=== PATIENT | female | born 1960 | race Caucasian/White ===

== ENCOUNTER 2016-05-11 12:29 | Inpatient (IN) | payer BC ==
[2016-05-11] MEDS: RINGERS SOLUTION,LACTATED 1,000 ML IV PRN ×2 (12:30→19:45)
--- OUTSIDE RECORDS SUMMARY | 2016-05-11 12:34 | XMS REPORT | Continuity of Care Document ---
:1960 Author Organization [facility] ([facility]) Address [address] [place] [address] Phone [phone] Care Team Providers Name Role Phone Unavailable Primary Care Provider Unavailable Source Comments This disclosure is being made pursuant to the Care Everywhere program, applicable federal and state laws, and may not contain all informaitonavailable regarding this patient.[facility] ([facility]) Active Allergies and Adverse Reactions Not on File Current Medications Not on file Active Problems Not on file Social History Tobacco Use Types Packs/Day Years Used Date Never Assessed Last Filed Vital Signs Vital Sign Reading Time Taken Blood Pressure - - Pulse - - Temperature - - Respiratory Rate - - Height - - Weight 61 kg (134 lb 7.7 oz) 09/07/1998 2:00 PM CDT Body Mass Index - - Oxygen Saturation - - Plan of Care Health Maintenance Due Date Last Done Comments HCV Screening 1960 Hepatitis B Vaccine (1 of 3 - Primary Series) 1960 Tdap Vaccine 1970 Lipid Disorder Screening 1977 MMR Vaccine 1977 Td Vaccine 1977 Cervical Cancer Screening 1989 Mammogram 1999 Colonoscopy 03/16/2009 Influenza Vaccine: Seasonal (#1) 10/19/2015 Results from Last 3 Months Not on file
[2016-05-11] MEDS ORDERED: NALOXONE HCL 1 MG/1 ML SYRG IV PRN (12:56)
[2016-05-11] MEDS ORDERED: diphenhydrAMINE HCL 50 MG/ML VIAL IV PRN (12:56)
[2016-05-11] MEDS ORDERED: ENOXAPARIN SODIUM 40 MG/0.4 ML SYRG SC SCH ×2 (13:00→21:00)
[2016-05-11] MEDS: MORPHINE SULFATE 50 MG CARTRIDGE IV PRN ×2 (13:12→18:06)
--- NOTE | 2016-05-11 13:19 | HP ---
Chief Complaint - Chief Complaint Date of Service: 05/11/16 Time of Service: 13:04 Chief Complaint: Left ankle pain/fx History of Present Illness: 56yo WF who was in her usual state of health until last pm when she was at a friend's cabin, caught her left foot and fell. She had immediate pain and was taken by EMS (per there discretion) to the [facility] ER. There she was seen by the ERP who contacted Dr. Isabel here, as they don't have orthopedic surgery there, who said if he could reduce the fracture they didn't need to transfer her. The ERP attempted reduction, but she continued in a great deal of pain, so was admitted for pain control. Review of case by Dr. Isabel, concern with her having so much pain that the fracture was not adequately reduced so she was transferred for pain control and reduction under anesthesia with intra procedure evaluation via xray/cali as determined by ortho. She will be admitted for pain control on morphine nut roaster and treated by dr. isabel for the fracture. Her other chronic meds can be evaluated and started after her procedure. She denies pain anywhere else, no ANDERSON, no numbness or tingling in her toes. Denies CP/SOB. - Patient's Past Medical History Patient History - Medical: Anxiety, Depression Patient History - Cardiac/Respiratory: Hypertension Patient History - Cancer: No Hx of Cancer Patient History - Surgical Procedures: Hysterectomy - Family History Family History:: no untoward family reactions to anesthesia - Family History Mother Family History - Medical: Anxiety, Arthritis, Diabetes Type 2, Depression Father Family History - Medical: Family History - Cardiac/Respiratory: Myocardial Infarction - Social History Living Situations: spouse Abuse History: No History of abuse Psych History: Hx of Anxiety, Hx of Depression Smoking Status: Current every day smoker Have you smoked in the past 12 months: Yes Patient requests Smoking Cessation Consult: No Initiate information on Smoking Cessation: No Alcohol Use: none Drug Use: none - Immunizations Immunizations Up to Date: Yes Review Of Systems (GEN) - Review of Systems Generalized/Overall Review: Present: No Symptoms Reported EENTM: Present: No Symptoms Reported Respiratory: Present: No Symptoms Reported Cardiac: Present: No Symptoms Reported Abdominal: Present: No Symptoms Reported Genitourinary: Present: No Symptoms Reported Musculoskeletal: Present: Joint Pain - left ankle Neurological: Absent: Numbness, Weakness Skin: Present: No Symptoms Reported Endocrine: Present: No Symptoms Reported Allergies/Adverse Reactions: Allergies Allergy/AdvReac Type Severity Reaction Status Date / Time No Known Allergies Allergy Unverified 05/11/16 12:48 Exam - Exam Vital Signs: Vital Signs - Last Taken Temp 36.9 C 05/11/16 12:38 Pulse 66 05/11/16 12:38 Resp 16 05/11/16 12:38 BP 160/85 05/11/16 12:38 Pulse Ox 91 05/11/16 12:38 Constitutional: Present: Alert, Oriented x3, Cooperative, Mild distress, Moderate distress ENT Exam: Present: hearing grossly normal, other - no scalp tenderness or swelling to palpation and inspection. Eye Exam: bilateral eye: normal inspection, PERRL, EOMI Neck: Present: supple Respiratory: Present: lungs clear, normal breath sounds, no respiratory distress , no accessory muscle use Cardiovascular/Chest: Present: regular rate, rhythm, no murmur Peripheral Pulses: dorsalis-pedis (L): 2+ Abdomen: Present: Normal bowel sounds, soft, nontender, no rebound tenderness, no hepatospenomegaly, obese /Rectal: Present: Exam deferred Extremity: Present: normal capillary refill - in left toes., other - left ankle in a 90degree spint. Skin Exam: Present: normal color Neurologic: Present: oriented x 3, depressed affect Appearance: Present: appropriate appearance, appropriate insight Eye contact: Present: cooperative, good eye contact, normal speech Thoughts: Present: normal thought pattern, no apparent hallucination Assessment/Plan - Assessment/Plan (1) Ankle fracture, left Assessment: consult by ortho to reduce fracture/cast or treat as they deem appropriate after reduction. Problem: Acute (2) Hypertension Assessment: BP's high currently but not disqualifying for reduction procedure. If need be can use IV enalapril or lopressor (since she in on metoprolol) but believe pain control will help control BP. can restart meds after procedure done. Problem: Acute (3) Depression Assessment: will restart meds later. not urgent to dose now. Problem: Acute (4) Discharge planning issues Assessment: discharge will depend on pain control with oral medications and whether further interventions are needed. Pt. is medically stable for procedure. Problem: Acute
[2016-05-11] MEDS ORDERED: MORPHINE SULFATE 10 MG/ML SYRG IV ONE (13:21)
--- NOTE | 2016-05-11 14:25 | CONS ---
[facility] - General Date of Service: 05/11/16 Narrative: Mrs. Lucas is a 56-year-old female who tripped over some railroad tracks at a friend's house resulting in a left ankle fracture dislocation. She was seen in outside emergency department at which time they had no orthopedic coverage and a phone call was made to me to discuss this case. I discussed treatment options with the outside ER provider which included reduction, splinting, and referral to my clinic versus transfer to [facility] emergency department for further care if unable to be treated in the emergency department at [facility]. The ER doctor reportedly attempted to reduce the ankle was unsuccessful. He then placed in an [id number] splint and admitted the patient for pain control, however, based on imaging he did not reduce the ankle and did not transfer for further care as I instructed him. She continued to have persistent pain and once images were made available to myself today it was determined that they did not follow my recommendations for care and we needed to proceed with more urgent treatment and she was transferred to [facility] for more definitive care. She reports significant pain and inability to mobilize but motor and sensation she reports is still intact. Source: patient - History of Present Illness Timing/Duration: 24 hours Severity: moderate Modifying Factors - (Worsens): Reports: movement Modifying Factors - (Improves): Reports: immobilization, medication Associated Symptoms: denies symptoms Allergies/Adverse Reactions: Allergies No Known Allergies Allergy (Unverified 05/11/16 12:48) - Patient's Past Medical History Patient History - Medical: Anxiety, Depression Patient History - Cardiac/Respiratory: Hypertension Patient History - Cancer: No Hx of Cancer Patient History - Surgical Procedures: Hysterectomy - Family History Family History:: no untoward family reactions to anesthesia - Family History Mother Family History - Medical: Anxiety, Arthritis, Diabetes Type 2, Depression Father Family History - Medical: Family History - Cardiac/Respiratory: Myocardial Infarction - Social History Living Situations: spouse Abuse History: No History of abuse Psych History: Hx of Anxiety, Hx of Depression Smoking Status: Current every day smoker Have you smoked in the past 12 months: Yes Patient requests Smoking Cessation Consult: No Initiate information on Smoking Cessation: No Alcohol Use: none Drug Use: none - Immunizations Immunizations Up to Date: Yes Procedures OTHER AND UNSPECIFIED VAGINAL HYSTERECTOMY (01/21/09) VAGINAL SUSPENS & FIXAT (01/21/09) Medications - Medications Current Medications: Current Medications Lactated Ringer's (Lactated Ringers) 1,000 mls @ 100 mls/hr IV .Q10H PRN PRN Reason: HYDRATION Stop: 06/10/16 12:56 Last Admin: 05/11/16 12:30 Dose: 100 mls/hr Morphine Sulfate (Morphine Sulfate 1 Mg/Ml Cotton Washer Cassette) 0 mg IV PRN PRN; Protocol PRN Reason: ankle pain Stop: 06/10/16 12:57 Last Admin: 05/11/16 13:12 Dose: 50 mg Physical Examination - Exam Narrative: Left lower extremity: She is in a [id number] aluminum splint with her foot and notable plantar flexion and eversion. There is no bleeding or open wounds. She has significant tenderness to palpation about the ankle. She is able to move her toes and sensation is intact to her toes. She has no other signs of injury to her left leg. Brisk cap refill to toes. Vital Signs: Vital Signs - Last Taken Temp 36.9 C 05/11/16 12:38 Pulse 66 05/11/16 12:38 Resp 16 05/11/16 12:38 BP 160/85 05/11/16 12:38 Pulse Ox 91 05/11/16 12:38 O2 Oxygen Delivery Method Room Air Constitutional: Present: Alert, Oriented x3 - Results and Findings: Narrative: Outside images available on disc include 3 views of the ankle which were the initial injury films and 2 additional views of the ankle which is reportedly postreduction however it is still dislocated with a posterior lateral dislocation of the talus with a trimalleolar ankle fracture. There does not appear to be any fracture or damage to the talus or subtalar joint. - Assessments/Findings (1) Ankle fracture, left Diagnosis(s): The plan is to urgently reduce this under sedation and placed into a splint. We will assess the skin status at that time and definitive treatment will be in the next 2-5 days depending on skin integrity. She'll be nonweightbearing in the splint. Ice and elevate. If her pain is controlled she can be discharged to home and treated as an outpatient. If she stays in the hospital we will assess the soft tissues tomorrow to determine if she is amenable to fixation on Monday. Problem: Acute Qualifiers: Encounter type: initial encounter Fracture type: closed Qualified Code(s) : S82.892A - Other fracture of left lower leg, initial encounter for closed fracture
[2016-05-11] MEDS ORDERED: RINGERS SOLUTION,LACTATED 1,000 ML IV ONE (14:55)
[2016-05-11] MEDS ORDERED: ALPRAZolam 1 MG TABLET PO PRN (16:20)
[2016-05-11] MEDS: oxyCODONE HCL/ACETAMINOPHEN 1 TAB TABLET PO PRN (18:57)
[2016-05-11] MEDS: buPROPion HCL 150 MG TABLET.SA PO SCH (21:29)
[2016-05-11] MEDS: FLUoxetine HCL 20 MG CAPSULE PO SCH (21:29)
[2016-05-11] MEDS: METOPROLOL SUCCINATE 50 MG TABLET.SA PO SCH (21:29)
[2016-05-12] MEDS: oxyCODONE HCL/ACETAMINOPHEN 1 TAB TABLET PO PRN ×4 (01:45→23:30)
[2016-05-12] MEDS: RINGERS SOLUTION,LACTATED 1,000 ML IV PRN ×2 (06:22→16:50)
--- NOTE | 2016-05-12 07:04 | PN ---
Subjective - Date and Time Seen Date: 05/12/16 Time: 06:58 Subjective Narrative: PtAde lancaster needed AUTOMOTIVE ARTIST throughout the night as well as the percocet to control her pain, but this am she feels her pain is ok as long as she doesn't move her ankle. She has no other complaints except being thirsty. Objective - Review of Systems Generalized/Overall Review: Reports: No Symptoms Reported EENTM: Reports: Other - dry mouth and thirsty Respiratory: Reports: No Symptoms Reported Cardiac: Reports: No Symptoms Reported Abdominal: Reports: No Symptoms Reported Genitourinary Symptoms: Reports: No Symptoms Reported Musculoskeletal Complaints: Reports: Joint Pain Neurological: Reports: No Symptoms Reported Skin: Reports: No Symptoms Reported Endocrine: Reports: No Symptoms Reported - Vitals Vitals: Last Vital Signs Temp 36.6 C 05/12/16 05:14 Pulse 62 05/12/16 05:14 Resp 16 05/12/16 05:14 BP 106/66 05/12/16 05:14 Pulse Ox 91 05/12/16 05:14 - Exam Constitutional: Present: Alert, Oriented x3, Cooperative, Mild distress ENT Exam: Present: hearing grossly normal Neck: Present: supple Respiratory: Present: lungs clear, normal breath sounds, no respiratory distress , no accessory muscle use Cardiovascular/Chest: Present: regular rate, rhythm, no murmur Abdomen: Present: Normal bowel sounds, soft Extremity: Present: normal capillary refill, other - sensation is intact in her left toes, CR is normal and she wiggles her toes without pain or lack of function. Skin Exam: Present: normal color Neurologic: Present: normal mood/affect - a little flattened affect, oriented x 3 Appearance: Present: appropriate appearance, appropriate insight Eye contact: Present: cooperative, good eye contact, normal speech Thoughts: Present: normal thought pattern, no apparent hallucination Assessment/Plan - Problems/Diagnosis (1) Ankle fracture, left Problem: Acute Qualifiers: Encounter type: initial encounter Fracture type: closed Qualified Code(s) : S82.892A - Other fracture of left lower leg, initial encounter for closed fracture Narrative: pain appears to be starting to get under control. She was made NPO as she had reported that she might go to surgery today, but will need to verify with surgeon as his op note states surgery possibly tomorrow. She was still needing IV morphine to keep her pain under control last night so we will see how her pain does and whether she could go home on oral meds or will need to remain in the hospital for IV pain meds for pain control. (2) Hypertension Problem: Acute Narrative: BP's are good this am. follow, no changes. (3) Depression Problem: Acute Narrative: no med changes at this time. She is a little dysphoric/mildly depressed, but has been through a lot the last couple days. (4) Discharge planning issues Problem: Acute Narrative: Discharge will depend on pain control - IV needs or not and when surgery might possibly take place. Await Dr. Isabel's input in this regard.
--- NOTE | 2016-05-12 08:25 | OR ---
Operative Report - Dictated Report Narrative: Date: 05/11/2016 Surgeon: Rao Isabel M.D. Loan Review Officer: Fausto Matute PA-C Anesthesia: MAC Preoperative diagnosis: Closed left trimalleolar ankle fracture dislocation. Postoperative diagnosis: Closed left trimalleolar ankle fracture dislocation Procedure: 1. Closed reduction left trimalleolar ankle fracture dislocation 2. Intra-operative interpretation of radiographs Estimated blood loss: None Specimens: None Complications: None Indications: Mrs. Lucas is a 56-year-old female who tripped resulting in a injury to the left ankle. They were seen on the floor with images from an outside hospital reviewed revealing the above injury. Treatment options were discussed with the patient and family and the plan for closed reduction was discussed. Risks were reviewed as well as follow-up. Procedure: After a timeout, MAC anesthetic was induced. Once adequate anesthesia was in place a reduction maneuver was performed by anterior translation and medial translation of the ankle. This was confirmed by mini C-arm. A well-padded AO splint was applied and held in place while it cured. Final images will be obtained. Patient was instructed to ice elevate and follow up as instructed. The extremity was neurovascularly intact postreduction.
[2016-05-12] MEDS ORDERED: ceFAZolin SODIUM 1 GM VIAL IV PRN (08:27)
--- NOTE | 2016-05-12 08:27 | PN ---
Subjective - Date and Time Seen Date: 05/12/16 Time: 08:25 Subjective Narrative: She reports her pain is improved from prior to reduction. She has not been up with therapy yet. Objective - Vitals Vitals: Last Vital Signs Temp 36.6 C 05/12/16 05:14 Pulse 62 05/12/16 05:14 Resp 16 05/12/16 05:14 BP 106/66 05/12/16 05:14 Pulse Ox 91 05/12/16 05:14 - Exam Exam Narrative: Left lower extremity: Splint in place leg is elevated sensations intact to toes. She'll move her toes. She has brisk cap refill. Assessment/Plan Plan Narrative: Plan is for open reduction internal fixation tomorrow. She'll be nothing by mouth after midnight. She can continue to ice elevate. If she is felt to be medically stable and able to ambulate she is okay to go home from an orthopedic standpoint, and return as an outpatient for surgery tomorrow. - Problems/Diagnosis (1) Ankle fracture, left Problem: Acute Qualifiers: Encounter type: initial encounter Fracture type: closed Qualified Code(s) : S82.892A - Other fracture of left lower leg, initial encounter for closed fracture
--- NOTE | 2016-05-12 14:01 | PN ---
Progess Note - Interim Narrative: 05/12/16 13:57 Trial with patient just on oral medication was not successful. GRAPHICS ARTIST was help for several hours, but pain escalated enough that percocet 10/650 just wasn't enough to hold her pain. She also experiences a great deal of pain when she dangles her leg, which makes it hard for pain control as well as ambulation. Given that she has a few steps to go up at home to get into the home and her poor pain control on oral medication, I believe it is more appropriate to have her remain in the hospital overnight on the GRAPHICS ARTIST, as well as the oral meds for some of her pain control, with the goal of surgery tomorrow and hopefully figuring out a better oral regimen to be able to discharge her on at least by Monday.
[2016-05-12] MEDS: MORPHINE SULFATE 50 MG CARTRIDGE IV PRN (17:22)
[2016-05-12] MEDS: METOPROLOL SUCCINATE 50 MG TABLET.SA PO SCH (20:56)
[2016-05-12] MEDS: FLUoxetine HCL 20 MG CAPSULE PO SCH (20:57)
[2016-05-12] MEDS: buPROPion HCL 150 MG TABLET.SA PO SCH (20:57)
[2016-05-13] MEDS: RINGERS SOLUTION,LACTATED 1,000 ML IV PRN ×2 (02:50→12:57)
--- NOTE | 2016-05-13 06:57 | PN ---
Subjective - Date and Time Seen Date: 05/13/16 Time: 06:50 Subjective Narrative: Still feels like a knife in her heel but the pain is controlled with the EARLY CHILDHOOD LEAD TEACHER. Pt. used 15 units overnight. Percocet helps some, but not real well. Pain is increased with foot dangle. She denies any other issues and has had a BM. Objective - Review of Systems Generalized/Overall Review: Reports: No Symptoms Reported EENTM: Reports: No Symptoms Reported Respiratory: Reports: No Symptoms Reported Cardiac: Reports: No Symptoms Reported Abdominal: Reports: No Symptoms Reported Genitourinary Symptoms: Reports: No Symptoms Reported Musculoskeletal Complaints: Reports: Joint Pain, Other - ankle pain - left Neurological: Reports: No Symptoms Reported Skin: Reports: No Symptoms Reported - Vitals Vitals: Last Vital Signs Temp 36.7 C 05/13/16 05:00 Pulse 65 05/13/16 05:00 Resp 18 05/13/16 05:00 BP 121/72 05/13/16 05:00 Pulse Ox 91 05/13/16 05:00 - Exam Constitutional: Present: Alert, Oriented x3, Cooperative, No distress ENT Exam: Present: hearing grossly normal Neck: Present: supple Respiratory: Present: lungs clear, normal breath sounds, no respiratory distress , no accessory muscle use Cardiovascular/Chest: Present: regular rate, rhythm, no murmur Abdomen: Present: Normal bowel sounds, soft, nontender, nondistended Extremity: Present: other - left ankle in splint. Neuro - vascular intact and able to wiggle toes. Skin Exam: Present: normal color Neurologic: Present: normal mood/affect, oriented x 3 Appearance: Present: appropriate appearance, appropriate insight Eye contact: Present: cooperative, good eye contact, normal speech Thoughts: Present: normal thought pattern, no apparent hallucination Assessment/Plan - Problems/Diagnosis (1) Ankle fracture, left Problem: Acute Qualifiers: Encounter type: initial encounter Fracture type: closed Qualified Code(s) : S82.892A - Other fracture of left lower leg, initial encounter for closed fracture Narrative: has been requiring EARLY CHILDHOOD LEAD TEACHER morphine to keep pain under control - typically around 15 units/8-12hrs. will plan on starting MS Contin 15mg Q8hrs along with percocet and hopefully this will control pain post op. If so hopefully can be discharged home this pm. (2) Hypertension Problem: Acute Narrative: stable no changes in the metoprolol. (3) Depression Problem: Acute Qualifiers: Depression Type: major depressive disorder Active/Remission status: currently active Psychotic features: without psychotic features Narrative: continue wellbutrin unchanged for now. (4) Discharge planning issues Problem: Acute Narrative: hopefully surgery will be done today, pain will be controlled on different pain regimen and patient can go home this pm.
--- NOTE | 2016-05-13 14:57 | DS ---
(1) Ankle fracture, left Problem: Acute Qualifiers: Encounter type: initial encounter Fracture type: closed Qualified Code(s) : S82.892A - Other fracture of left lower leg, initial encounter for closed fracture (2) Hypertension Problem: Acute (3) Depression Problem: Acute Qualifiers: Depression Type: major depressive disorder Active/Remission status: currently active Psychotic features: without psychotic features (4) Discharge planning issues Problem: Acute Description of Stay: Pt. admitted for left ankle fracture. Fracture was reduced by Dr. isabel, improving her pain significantly, but her pain remained high, most likely due to delay by outside hospital in transferring her to where there was orthopedic coverage, i.e. to our hospital. Because of this she required morphine BATH DESIGN SALES CONSULTANT to keep her pain under control. She was given a trial on just oral percocet, but this was unsuccessful. On day of discharge pt. was taken to surgery by Dr. Isabel. (see his op note for details). She was then discharged home afterwards to do outpt. rehab and f/u. Pain meds given of MS contin and percocet. She was asked to limit her xanax while on the pain meds due to drug - drug increases in sedation. She was asked to limit or cease her smoking which will help the healing process. Her depression was ok, her bupropion was unchanged. Her HTN was ok, her metoprolol was unchanged. Procedures Performed: see notes below List Procedures: reduction of left ankle fraction. pinning of ankle. See noted by Dr. Isabel. Discharge Disposition: Home self care Disposition: Home self-care Condition: Fair Discharge Activity: Non-Weight bearing - left ankle Discharge Diet: General/regular food Assisted Therapy: Physicial Therapy Referrals: Eleazar Blanc MD [Primary Care Provider] - One Week Rao Isabel MD [Staff Physician] - (per him ) Prescriptions (Any new or edited meds): Morphine Sulfate [Ms Contin] 15 mg PO TID #30 tab oxyCODONE HCL/ACETAMINOPHEN [Percocet 5 MG/325 MG] 2 tab PO Q6H PRN #60 tablet PRN Reason: Pain Complete Home Medications List: Complete Home Medication List: ALPRAZolam [Xanax] 1 mg PO TID PRN 05/11/16 Bupropion HCl [Bupropion HCl Sr] 150 mg PO HS 05/11/16 Fluoxetine HCl [Prozac] 40 mg PO HS 05/11/16 Metoprolol Succinate [Toprol Xl] 50 mg PO HS 05/11/16 Morphine Sulfate [Ms Contin] 15 mg PO TID #30 tab 05/13/16 oxyCODONE HCL/ACETAMINOPHEN [Percocet 5 MG/325 MG] 2 tab PO Q6H PRN #60 tablet 05/13/16
[2016-05-13] MEDS ORDERED: RINGERS SOLUTION,LACTATED 1,000 ML IV ONE ×2 (16:10→17:34)
--- NOTE | 2016-05-13 18:09 | OR ---
Operative Report - Dictated Report Narrative: Date: 05/13/2016 Surgeon: Rao Isabel M.D. Collaborative Teacher: Fausto Matute PA-C Anesthesia: General plus regional plus local Preoperative diagnosis: Closed left trimalleolar ankle Fracture. Postoperative diagnosis: Closed left trimalleolar ankle Fracture. Chondral defect medial talus Procedure: 1. Open reduction internal fixation left medial and lateral malleolus ankle fracture. 2. Microfracture medial talus 3. Closed reduction and closed treatment of posterior malleolus fracture 2. Intra-operative interpretation of radiographs. Estimated blood loss: None Tourniquet time: 72 Minutes at 275 millimeters mercury Retained implants: [employer] VLP 5 hole distal fibular specific locking plate with associated screws on the fibula, 3.0 mm cannulated partially threaded cancellus screws in the medial malleolus x 45 mm 2 Specimens: None Complications: None Indications: Mrs. Lucas is a 56-year-old female who tripped on railroad ties resulting in a injury to the left ankle. They were seen in the hospital with images obtained revealing the above injury. They were seen in clinic where the skin was examined and felt to be amenable to surgical treatment. The risks, benefits, and treatment options were discussed with the patient and the plan for open reduction internal fixation was discussed. Risks were reviewed including , blood clots, nerve/tendon/blood vessel injury, malunion, nonunion, failure of implants, prominent implants, arthrosis, persistent pain, need for additional procedures. Procedure: After a timeout, anesthetic consisting of Ancef was administered. Beanbag was utilized in order bump the operative leg and a well-padded tourniquet was applied to the operative thigh. The splint was removed and the leg was pre- scrubbed with chlorhexidine then prepped and draped in a standard sterile fashion. The extremity was exsanguinated and tourniquet was inflated. Initial attention was turned to the medial malleolus. A curvilinear incision was made over the anterior medial aspect of the distal tibia. Care was taken to protect the saphenous vein and nerve. The medial malleolus fracture was identified and the soft tissues elevated off the bony edges. Hematoma was evacuated from the fracture site. The joint was visualized and there appeared to be a 5 mm area of chondral defect over the medial shoulder of the talus. This was curetted down to bone and microfractured using a microfracture awl. The joint was thoroughly irrigated. Preliminary fixation with a reduction clamp was placed across the fracture of the medial malleolus. Attention was then turned to the lateral malleolus. A posterior lateral incision was made over the fibular fracture. Subcutaneous dissection was carried down to the fibula protecting the superficial peroneal nerve. The fracture was identified and was noted to be oblique Mckenzie B from anterior to posterior. After preparing the bony edges and reducing the fracture, a 2.7 mm lag screw was utilized in order to stabilize the fracture. A locking fibular plate was then placed laterally and secured to the bone. Mini C-arm was used in order to confirm the appropriate placement and length of the implants. Care was taken to avoid placing screws into the ankle joint and the syndesmosis. Once it was felt that the fibula was adequately stabilized we returned our attention to the medial malleolus. Prior to placing the fibular plate the posterior malleolus was noted to be reduced and of minimal articular surface. Two parallel guidewires were placed from the tip of the medial malleolus paralleling the anterior distal tibia within the confines of the distal tibial bone. These were measured, drilled, and sequentially tightened using 2 3.0 mm partially-threaded cancellus screws. This gave good stabilizations the medial malleolus fracture. The ankle was then placed through a range of motion and had no significant crepitance. The syndesmosis was stressed and was noted to be stable. The mortise was symmetrical and intact. The wounds were then thoroughly irrigated. The ankle was then stressed posteriorly and was noted to be stable and also noted to be well reduced on the lateral view. Subcutaneous tissue was repaired over the implants utilizing 3-0 and 4-0 Vicryl. The skin was closed utilizing 3-0 nylon and 4-0 nylon. Half percent Marcaine without epinephrine was infused around the skin edges for additional anesthetic. Xeroform, 4 x 4's, soft roll, and a well-padded AO splint was applied. Patient was then awoken and transferred to postanesthesia care in stable condition. All sponge, sharp, and instrument counts were correct prior to closing the wounds.
[2016-05-13 20:29] VITALS: BP 132/66
== END 2016-05-13 20:00 | disposition home or self-care (01) | DRG 494 ==
LOC: MS 12:29
PROVIDERS: ADMIT Family Medicine; ATTEND Family Medicine
PROC: 0SSGXZZ Reposition Left Ankle Joint, External Approach (ICD-10-PCS; principal; 2016-05-11 14:30)
PROC: 0QSH04Z Reposition Left Tibia with Internal Fixation Device, Open Approach (ICD-10-PCS; 2016-05-13)
DX: S82.852A Displaced trimalleolar fracture of left lower leg, initial encounter for closed fracture (principal); I10 Essential (primary) hypertension; F17.210 Nicotine dependence, cigarettes, uncomplicated; F32.9 Major depressive disorder, single episode, unspecified; W01.0XXA Fall on same level from slipping, tripping and stumbling without subsequent striking against object, initial encounter; Y92.007 Garden or yard of unspecified non-institutional (private) residence as the place of occurrence of the external cause

== ENCOUNTER 2017-02-17 08:47 | Day surgery (SDC) | payer BC ==
[~2017-02-17 08:47] MED LIST: ACETAMINOPHEN 500 MG TABLET PO PRN; HYDROmorphone HCL 2 MG/ML VIAL IV PRN; MAG HYDROX/ALUMINUM HYD/SIMETH 30 ML UDC PO PRN; MAGNESIUM HYDROXIDE 30 ML UDC PO PRN; ONDANSETRON HCL/PF 2 MG/ML VIAL IV PRN; PROMETHAZINE HCL 25 MG in DEXTROSE 5 % IN WATER 50 ML IV PRN; RINGER'S SOLUTION,LACTATED 1,000 ML IV PRN; ZOLPIDEM TARTRATE 5 MG TABLET PO PRN; ceFAZolin SODIUM 1 GM VIAL IV PRN; diphenhydrAMINE HCL 50 MG/ML VIAL IV PRN; oxyCODONE HCL/ACETAMINOPHEN 1 TAB TABLET PO PRN
[2017-02-17] MEDS ORDERED: RINGER'S SOLUTION,LACTATED 1,000 ML IV ONE (09:23)
[2017-02-17] MEDS ORDERED: ceFAZolin SODIUM 1 GM VIAL IV ONE (09:45)
[2017-02-17] MEDS ORDERED: BUPIVACAINE HCL 50 ML VIAL IJ ONE (10:22)
--- NOTE | 2017-02-17 10:36 | POSTOP NO ---
Date of Surgery: 02/17/17 Patient Tolerated the Procedure: Well Post Operative Diagnosis/Procedures: Beef Breaker: Fausto Matute PA-C Post-operative Diagnosis: Painful retained implants left fibula Finding: Above Procedure: Removal of deep implants left fibula with intraoperative interpretation of x-rays Estimated Blood Loss: Minimal Specimens: Implants returned the patient
--- NOTE | 2017-02-17 10:38 | OR ---
Operative Report - Dictated Report Narrative: Date: 02/17/2017 Surgeon: Rao Isabel M.D. Hourly Manager: Fausto Matute PA-C Preoperative diagnosis: Painful retained implants left fibula Postoperative diagnosis: Painful retained implants left fibula Operation: 1 - Removal of deep implants left fibula 2 - Intraoperative interpretation of x-rays Retained implants: None Anesthesia: General Plus local Tourniquet time: 22 Minutes at 250 mmHg Estimated blood loss: Minimal Drains: None Specimen: Implants for return to patient Complications: None Indications: Mrs. Lucas is a 56-year-old female who previously underwent over reduction internal fixation of left ankle and subsequently developed pain related to the implants. They've gone on to heal the fracture however had notable symptoms related to the implants and wished to have these removed.. They were seen in the clinic and discuss the options for treatment. She wished to proceed with surgical removal of deep implants. The risks and benefits alternatives were discussed. Risks of , blood clots, bleeding, infection, nerve/tendon/ blood vessel injury, persistent pain, wound complications, and need for additional procedures were discussed. Consent was obtained in the clinic. Procedure: After marking the correct extremity in the preoperative holding area, the patient was taken to the operating room. A timeout was performed. IV antibiotics consisting of Ancef were administered. Adequate anesthesia was placed. The extremity was then prepped and draped in standard sterile fashion. Utilizing the prior incision, sharp dissection was carried through the skin after exsanguinating extremity and inflating tourniquet. Careful dissection was carried down to the implants. The implants were then removed without complication. There did not appear to be any complications related to the fracture nor any signs of infection. Once all the implants were removed, the wound was thoroughly irrigated. A prominent bone was removed and the soft tissues were closed in a layered fashion with 3-0 Vicryl and the skin was closed with 3-0 nylon. Final images were obtained with mini C-arm. Sterile dressings of Xeroform, 4 x 4, soft roll, Dwayne wrap. 0.5% Marcaine without epinephrine was infused into the skin edges prior to placing dressings. All sponge, needle, sharp, and instrument counts were correct prior to closing the wound. The patient was awoken and transferred to the postanesthesia care in stable condition.
[2017-02-17 14:25] VITALS: BP 132/85
[2017-02-17] MEDS ORDERED: SENNOSIDES/DOCUSATE SODIUM 1 TAB TABLET PO SCH (21:00)
== END 2017-02-17 08:48 | disposition home or self-care (01) ==
LOC: AMB 08:47
PROVIDERS: ATTEND Orthopaedic Surgery
PROC: 0QPK04Z Removal of Internal Fixation Device from Left Fibula, Open Approach (ICD-10-PCS; principal; 2017-02-17 10:50)
DX: T84.84XA Pain due to internal orthopedic prosthetic devices, implants and grafts, initial encounter (principal); I10 Essential (primary) hypertension; F41.1 Generalized anxiety disorder; F32.9 Major depressive disorder, single episode, unspecified; F17.200 Nicotine dependence, unspecified, uncomplicated; Z68.29 Body mass index [BMI] 29.0-29.9, adult